=== PATIENT | female | born 1960 | race Two or more races ===

== ENCOUNTER 2019-11-30 10:25 | Day surgery (SDC) | payer MEDICAID ==
[~2019-11-30] VITALS: Ht 167.6 cm; Wt 83.9 kg
[2019-11-30] MEDS ORDERED: Lidocaine 1% MPF 10mg/ml 5ml ONE (10:26)
[2019-11-30] MEDS ORDERED: LR 1000ml ONE (10:26)
[2019-11-30] MEDS ORDERED: Propofol 200mg/20ml IV ONE (10:26)
--- NOTE | 2019-11-30 10:40 | Anethesia Preoperative Eval ---
Anesthesia Pre-op PMH/ROS General Date of Evaluation: Nov 30, 2019 Time of Evaluation: 10:33 Anesthesiologist: [email or web address] ASA Score: ASA 3 Mallampati Score Class I : Soft palate, uvula, fauces, pillars visible Class II: Soft palate, uvula, fauces visible Class III: Soft palate, base of uvula visible Class IV: Only hard plate visible Mallampati Classification: Class II Surgeon: homero Diagnosis: +occult blood in stool Surgical Procedure: egd/colonoscopy Anesthesia History: none Social History: current smoker Family History: no anesthesia problems Allergies: Coded Allergies: No Known Allergies (Unverified , 11/30/19) Medications: see eMAR Patient NPO?: Yes Past Medical History Cardiovascular: Reports: HTN Gastrointestinal/Genitourinary: Reports: GERD, other - right oophorectomy, kidney stones Endocrine: Reports: hypothyroidism - thyroidectomy HEENT: Reports: other - decreased visual acuity Anesthesia Pre-op Phys. Exam Physician Exam Constitutional: NAD Neurologic: CN 2-12 intact Cardiovascular: RRR Respiratory: CTA Gastrointestinal: S/NT/ND Airway Exam Mallampati Score: Class II MO: limited Neck: flexible TMD: 2fb ROM: limited Anesthesia Pre-op A/P Risk Assessment & Plan Assessment: asa3 Plan: mac Status Change Before Surgery: No Pre-Antibiotics Drug: Mela Handy MD Nov 30, 2019 10:40
[2019-11-30 10:48] VITALS: BP 130/85
[2019-11-30] MEDS ORDERED: ARMOUR THYROID120 MG ORAL (10:56)
[2019-11-30] MEDS ORDERED: BENAZEPRIL-HCT1 EAC2 ORAL (10:56)
--- NOTE | 2019-11-30 10:58 | Pre-Procedure Note/Attestation ---
Pre-Procedure Note/Attestation Complete Prior to Procedure Planned Procedure: not applicable Procedure Narrative: esophagogastroduodenoscopy and colonoscopy Indications for Procedure Pre-Operative Diagnosis: gib Attestation I attest that I discussed the nature of the procedure; its benefits; risks and complications; and alternatives (and the risks and benefits of such alternatives ), prior to the procedure, with the patient (or the patient's legal hospital sales representative). I attest that, if there was a reasonable possibility of needing a blood transfusion, the patient (or the patient's legal hospital sales representative) was given the [facility] standardized written summary, pursuant to the Asaf Mario Blood Safety Act ([place] Health and Safety Code # 1645, as amended). I attest that I re-evaluated the patient just prior to the surgery and that there has been no change in the patient's H&P, except as documented below: Iker Holden MD Nov 30, 2019 10:58
--- NOTE | 2019-11-30 10:59 | Short Stay Surgery H&P ---
History of Present Illness History of Present Illness Chief Complaint julissa Chambers is a 59 year old female who was admitted on for Gerd, Positive For Fecal Abnormalities Patient History Allergies: Coded Allergies: No Known Allergies (Unverified , 11/30/19) PAST MEDICAL HISTORY: (1) HTN (hypertension) Medication History Scheduled Benazepril/Hydrochlorothiazide (Benazepril-Hctz 20-25 Mg Tab), 1 TAB ORAL DAILY, (Reported) Thyroid,Pork ([place] Thyroid), 150 MG ORAL DAILY, (Reported) Review of Systems Cardiovascular: Reports: no symptoms Respiratory: Reports: no symptoms Skeletal: Reports: no symptoms Gastrointestinal: Reports: gastro esophageal reflux disease Genitourinary: Reports: no symptoms Neurologic: Reports: no symptoms Endocrine: Reports: no symptoms Hematologic: Reports: no symptoms Physical Exam Vital Signs Last Vital Signs Date Time Temp Pulse Resp B/P (MAP) Pulse Ox O2 Delivery O2 Flow Rate FiO2 11/30/19 10:48 97.5 89 18 130/85 97 Room Air Skin: normal HENT: normal Heart: normal Lungs: normal Abdomen: normal Extremities: normal Plan Plan of Care esophagogastroduodenoscopy and colonoscopy Attestation Are the patient's medical conditions optimized for surgery? Attestation Response: yes Iker Holden MD Nov 30, 2019 10:59
--- NOTE | 2019-11-30 11:17 | Endoscopy Procedure Note ---
Endoscopy Procedure Note General Indication for Procedure: gib Procedures Performed: EGD, colonoscopy Operative Findings/Diagnosis: gastritis, hemorrhoids Specimen: yes Pt Tolerated Procedure Well: Yes Estimated Blood Loss: none Anesthesia Anesthesiologist: ann Anesthesia: MAC Inserted Devices Implant(s) used?: No Quality Quality of Bowel Preparation: Good Did scope reach the cecum?: Yes Was there any complications?: No GI Core Measures 50 yrs or older w/o bx or poly: No 10yrs. F/U recommended: Yes If not recommended, why?: Above average risk 18 years or older w/prev. colo: No Iker Holden MD Nov 30, 2019 11:17
[2019-11-30 11:41] VITALS: BP 119/75
[2019-11-30 11:45] VITALS: BP 101/52
[2019-11-30 11:50] VITALS: BP 123/78
--- NOTE | 2019-11-30 11:54 | Immediate Post-Op Evaluation ---
Immediate Post-Op Evalulation Immediate Post-Op Evalulation Procedure: egd/colonoscopy Date of Evaluation: Nov 30, 2019 Time of Evaluation: 11:53 IV Fluids: 400ml lr Blood Products: none Estimated Blood Loss: negligible Blood Pressure Systolic: 119 Blood Pressure Diastolic: 75 Pulse Rate: 89 Respiratory Rate: 18 O2 Sat by Pulse Oximetry: 98 Temperature (Fahrenheit): 97.9 Pain Score (1-10): 0 Nausea: No Vomiting: No Complications none Patient Status: awake, reacts, patent Hydration Status: adequate Drug: Mela Handy MD Nov 30, 2019 11:53
--- NOTE | 2019-11-30 11:55 | 48 Hour Post Anesthesia Eval ---
Post Anesthesia Evaluation Procedure: egd/colonoscopy Date of Evaluation: Nov 30, 2019 Time of Evaluation: 11:55 Blood Pressure Systolic: 123 0: 78 Pulse Rate: 77 Respiratory Rate: 18 Temperature (Fahrenheit): 97.9 O2 Sat by Pulse Oximetry: 97 Airway: patent Nausea: No Vomiting: No Pain Intensity: 0 Hydration Status: adequate Cardiopulmonary Status: stable Mental Status/LOC: patient returned to baseline Post-Anesthesia Complications: none Follow-up care needed: N/A Mela Guadalupe MD Nov 30, 2019 11:55
[2019-11-30 12:00] VITALS: BP 115/74
[2019-11-30 12:08] VITALS: BP 119/68
--- NOTE | 2019-11-30 16:30 | Procedure Note ---
DATE OF PROCEDURE: 11/30/2019 SURGEON: Iker Holden M.D. PROCEDURE: Upper endoscopy with biopsy and colonoscopy. ANESTHESIA: Per Dr. Cleaning. INSTRUMENT: Olympus adult flexible upper endoscope and colonoscope. INDICATION: GI bleeding. REASON FOR PROCEDURE: The procedure, risks, benefits, and possible consequences, including hemorrhage, aspiration, perforation and infection, and alternative treatments, were explained to the patient/legal guardian by Dr. Iker Holden and the patient/legal guardian understood and accepted these risks. DESCRIPTION OF PROCEDURE: After informed consent was obtained and the patient was adequately sedated, Olympus upper endoscope was advanced from mouth into the second portion of the duodenum and retroflexion was performed in the stomach. The patient had some gastritis. Random biopsy from antrum was obtained to rule out H. pylori infection. Also, the patient had evidence of 2 cm hiatal hernia with irregular Z-line without any obvious bleeding. No significant esophagitis. At this time, the upper endoscope was retrieved and the patient was turned over for colonoscopy. First, rectal exam was performed, which was positive for internal hemorrhoids. Then, scope was advanced from rectum into the cecum documented the appendiceal orifice, ileocecal valve, right upper quadrant palpation. Quality of prep overall was good. The patient has some diverticulosis in the left colon. Retroflexion of rectum showed evidence of medium-sized internal hemorrhoids. No obvious other findings were found. The patient tolerated procedure very well without any complication. SUMMARY OF FINDINGS: 1. Small hiatal hernia. 2. Gastritis, status post biopsy. 3. Diverticulosis. 4. Internal hemorrhoids. RECOMMENDATIONS: Follow up biopsy results and treat accordingly. We will recommend repeat colonoscopy in 5 years. Iker Holden M.D. DR: Rosmery JOB#: [id number] CC:
== END 2019-11-30 13:00 | disposition home or self-care (01) ==
LOC: GAS 10:25
DX: K62.5 Hemorrhage of anus and rectum (principal); K57.90 Diverticulosis of intestine, part unspecified, without perforation or abscess without bleeding; K64.8 Other hemorrhoids; K44.9 Diaphragmatic hernia without obstruction or gangrene; I10 Essential (primary) hypertension; K21.9 Gastro-esophageal reflux disease without esophagitis; Z87.442 Personal history of urinary calculi; E03.9 Hypothyroidism, unspecified; E89.0 Postprocedural hypothyroidism; Z90.721 Acquired absence of ovaries, unilateral; K29.50 Unspecified chronic gastritis without bleeding; B96.81 Helicobacter pylori [H. pylori] as the cause of diseases classified elsewhere
CPT/HCPCS: 43239; 45378; J2704; J7120; Z7512; 94003; 94150